=== PATIENT | female | born 1995 | race Caucasian/White ===

== ENCOUNTER 2024-11-08 02:42 | Emergency (ER) | payer OTHER, SELFPAY ==
[2024-11-08 02:44] VITALS: BP 120/80
--- NOTE | 2024-11-08 03:02 | ED.GENMED ---
History of Present Illness
General
Chief Complaint: Back Pain
Source: patient
Exam Limitations: none
Time Seen by Provider: 11/08/24 02:56
History of Present Illness
History of Present Illness:
See MDM
Past History
Past History
ED Past Medical History: None
ED Past Surgical History: None
Social History
Tobacco: Non-smoker
Alcohol: None
Phy Exam
Physical Exam
Physical Exam:
See MDM
Course
Orders/Labs/Results
Orders:
Orders
11/08/24 03:01
Acetaminophen [Tylenol] 650 mg PO NOW STA
Lidocaine [Lidocaine 4% Patch] 1 patch TOPICAL ONCE ONE
Apply Lidocaine patch(s) to:: left lower back
Prednisone [Deltasone] 40 mg PO NOW STA
Vital Signs
Initial and Last Documented VS:
Initial Vital Signs
Temp Pulse Resp BP Pulse Ox
97.4 F 58 18 120/80 100
11/08/24 02:44 11/08/24 02:44 11/08/24 02:44 11/08/24 02:44 11/08/24 02:44
Last Documented Vital Signs
Temp Pulse Resp BP Pulse Ox
97.4 F 55 18 108/80 100
11/08/24 02:44 11/08/24 03:21 11/08/24 03:21 11/08/24 03:19 11/08/24 03:19
MDM/Problems Addressed
Differential Diagnosis Includes:
HPI and MDM Narrative:
28-year-old female at approximately 22 weeks gestation is presenting with left lower back pain going down her left leg. She has had a history of sciatica in the past but has never been this bad. She denies any vaginal bleeding or loss of fluid.
She is not taking any Tylenol or medicine prior to arrival. On exam, she does have straight leg raise consistent with likely sciatica. No midline tenderness or rash noted on her lower back. We discussed low utility of x-ray in addition to the
radiation risk. Patient acknowledges. Will heart sounds. Will place lidocaine patch on her back, start Tylenol and start short course of steroids
Patient denies any red flags such as trouble urinating or loss of bowel or bladder control
Physical exam
General: Well appearing and non-toxic
HEENT: protecting airway
Neck: appears supple
CV: No evidence of cyanosis
Resp: No accessory muscle use
Abd: Non-distended
Back: Mild left sacroiliac point tenderness
Extremities: No deformities. Positive straight leg raise to the left. Distal extremity neurovascular intact
Neuro: alert
Psych: Normal affect
Skin: Intact
Problems Addressed including Acute and Chronic Conditions affecting care:
1. sciatica
Acuity: acute
Prognosis: stable
Details: Given current , this does limit medications. Will start Tylenol and steroids
Updates
I reassessment, patient feeling much better and feels comfortable going home. heart tones checked
Differential Diagnosis (but not limited to): Sciatica, herniated disc
Testing considered: Lumbar x-ray
Drug therapy (if applicable): OTC meds, please see d/c instruction regarding Rx drugs
Amount and/or Complexity of Data Reviewed
Clinical info obtained from: Patient
External data reviewed: N/A
Labs I independently reviewed (but not limited to): N/A
Radiology: N/A
Pulse Ox: not hypoxic
EKG independently reviewed: N/A
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
Critical Care: N/A
Risk of Complication:
Social Determinants of health: Good social support
Discussed with other providers: N/A
Escalation of Care includes Admit/Obs: After being observed in the Emergency Department, pt stable for discharge.
Occasional wrong word or 'sound a like' substitutions may have occurred due to the inherent limitations of voice recognition software. Read the chart carefully and recognize, using context, where substitutions have occurred.
*Critical Care Note
Total Time (30-74mins, 75-104mins- exclusive of procedures): Not Applicable
ED Attending Note
-
Portions of this chart may have been created with voice recognition software.� Occasional wrong word or��sound alike� substitutions may have occurred due to the inherent limitations of voice recognition software.
Discharge Plan
Departure
Patient Disposition: Home (Routine Discharge)
Date of Disposition: 11/08/24
Time of Disposition: :
Patient with high blood pressure during this ER visit?: No
Discharge Problem:
Sciatic leg pain
Instructions: Sciatica (DC)
Prescriptions:
New
prednisone 20 mg tablet
40 mg PO DAILY Qty: 10 0RF
Referrals:
Elizabet Reid DO [Family Provider] -
Activity Restrictions/Additional Instructions:
Please return for any worsening symptoms.
You may return at any time if you have further concerns.
Please follow up with your doctor at the first available appointment, preferably this week.
Thank you for choosing [facility].
Interventions
Interventions:
*Risk Screen - Suicide Last Done: 11/08/24 02:44
*General Assessment Last Done: 11/08/24 03:17
*Neglect/Abuse Screening Last Done: 11/08/24 02:44
*ED- Fall Risk Assessment Last Done: 11/08/24 03:17
*ED COVID-19 Vaccine History Last Done: 11/08/24 03:17
ED-Musculoskeletal Assessment Last Done: 11/08/24 03:17
Discharge Date and Time
Print Language: CAMEROONIAN
[2024-11-08] MEDS: DELTASONE 40 MG PO (03:11)
[2024-11-08] MEDS: LIDOCAINE 4% PATCH 1 PATCH TOPICAL (03:12)
[2024-11-08] MEDS: TYLENOL 650 MG PO (03:12)
[2024-11-08 03:17] VITALS: BMI 22.4
[2024-11-08 03:19] VITALS: BP 108/80
== END 2024-11-08 04:20 | disposition home or self-care (01) ==
LOC: EMR 02:42
PROVIDERS: EMERGENCY PHYSICIAN Student in an Organized Health Care Education/Training Program; FAMILY PHYSICIAN Family Medicine
DX: O99.891 Other specified diseases and conditions complicating pregnancy (principal); M54.42 Lumbago with sciatica, left side; Z3A.22 22 weeks gestation of pregnancy
CPT/HCPCS: 99283

== ENCOUNTER → 2025-01-18 15:43 | Outpatient (REF) | payer OTHER, SELFPAY ==
[2025-01-18 15:04] LABS: % Basophils 0.3 % (0-2); % Eosinophils 0.8 % (0-6); % Immature Granulocytes 0.5 % (0-0.5); % Lymphocytes 22.2 % (20.5-51.1); % Monocytes 6.9 % (1.7-9.3); % Neutrophils 69.3 % (42.2-75.2); Absolute Eosinophils 0.1 10^3/uL (0-0.7); Absolute Lymphocytes 1.4 10^3/uL (1.2-3.4); Absolute Monocytes 0.4 10^3/uL (0.1-0.6); Absolute Neutrophils 4.2 10^3/uL (1.4-6.5); Hematocrit 31.7 % (37.0-47.0); Hemoglobin 9.4 g/dL (12.0-16.0); Mean Corp Hgb Conc. 29.7 g/dL (33.0-37.0); Mean Corpuscular Hgb 22.2 pg (27.0-31.0); Mean Corpuscular Volume 74.9 fL (81.0-99.0); Mean Platelet Volume 9.1 fL (7.4-10.4); Platelet Count 202 10^3/uL (130-400); Red Blood Cell Count 4.23 10^6/uL (4.20-5.40); Red Cell Dist. Width 18.3 % (11.5-14.5); White Blood Cell Count 6.1 10^3/uL (4.8-10.8)
== END ==
LOC: OIDL 15:43
PROVIDERS: ATTENDING PHYSICIAN Internal Medicine Hematology & Oncology
DX: D50.9 Iron deficiency anemia, unspecified (principal)
CPT/HCPCS: 85025

== ENCOUNTER → 2025-01-26 08:48 | Outpatient (REF) | payer OTHER, SELFPAY | LOC: PNTC 08:48 | PROVIDERS: ATTENDING PHYSICIAN Obstetrics & Gynecology | DX: Z34.00 Encounter for supervision of normal first pregnancy, unspecified trimester (principal); O36.5910 Maternal care for other known or suspected poor fetal growth, first trimester, not applicable or unspecified | CPT/HCPCS: 76816; 76820 ==

== ENCOUNTER → 2025-02-17 10:34 | Outpatient (REF) | payer OTHER, SELFPAY | LOC: PNTC 10:34 | PROVIDERS: ATTENDING PHYSICIAN Obstetrics & Gynecology | DX: Z34.90 Encounter for supervision of normal pregnancy, unspecified, unspecified trimester (principal) | CPT/HCPCS: 76816; 76820 ==

== ENCOUNTER 2025-03-12 10:31 | Inpatient (IN) | payer OTHER, SELFPAY ==
[2025-03-12 11:14] VITALS: BP 124/96; BMI 23.6
[2025-03-12 12:04] LABS: Hematocrit 38.1 % (37.0-47.0); Hemoglobin 12.4 g/dL (12.0-16.0); Mean Corp Hgb Conc. 32.5 g/dL (33.0-37.0); Mean Corpuscular Volume 82.3 fL (81.0-99.0); Nucleated Red Blood Cells % 0 %; Platelet Count 149 10^3/uL (130-400); Red Cell Dist. Width 19.9 % (11.5-14.5)
[2025-03-12 12:34] LABS: Urine Character Clear (Clear)
[2025-03-12] MEDS: PENICILLIN 110 UNITS IV (12:42)
[2025-03-12] MEDS: LR 1000 IV ×2 (12:42→19:43)
[2025-03-12 12:46] LABS: ALT (SGPT) 13 U/L (0-35); AST (SGOT) 21 U/L (14-36); Albumin 3.1 g/dl (3.5-5.0); Alkaline Phosphatase 94 U/L (38-126); Blood Urea Nitrogen 6 mg/dl (7-17); Calcium 8.5 mg/dl (8.4-10.2); Carbon Dioxide 25 mmol/L (22-30); Chloride 106 mmol/L (98-107); Estimated Creatinine Clearance 109 ml/min; Glucose 75 mg/dl (70-99); Potassium 4.0 mmol/L (3.5-5.1); Sodium 135 mmol/L (135-145); Total Protein 5.4 g/dl (6.3-8.2); Uric Acid 5.5 mg/dl (2.5-6.2); eGFR > 60.00
[2025-03-12 12:55] LABS: Urine Red Blood Cell 0-2 /HPF (0-2); Urine Squamous Cell >30 /LPF (Few)
[2025-03-12] MEDS: PITOCIN 30 UNITS/NSS 500 ML IV (14:11)
[2025-03-12] MEDS: PENICILLIN 55 UNITS IV ×2 (17:08→19:53)
[2025-03-12] MEDS: SUBLIMAZE 100 MCG EPIDURAL (20:20)
[2025-03-12] MEDS: FENTANYL/BUPIVACAINE 100 EPIDURAL (20:21)
[2025-03-12] MEDS: XYLOCAINE-MPF 1% VIAL 30 ML INFIL (21:38)
[2025-03-13 05:51] LABS: Hematocrit 42.6 % (37.0-47.0); Hemoglobin 13.7 g/dL (12.0-16.0)
[2025-03-13] MEDS: MOTRIN 600 MG PO ×2 (06:25→20:47)
[2025-03-13] MEDS: COLACE PO (19:26)
[2025-03-13] MEDS: COLACE 100 MG PO (20:47)
[2025-03-13] MEDS: PRENATAL PLUS 1 TABLET PO (20:47)
[2025-03-14] MEDS: COLACE 100 MG PO (08:01)
[2025-03-14] MEDS: MOTRIN 600 MG PO (08:01)
[2025-03-14] MEDS: M-M-R II 0.5 ML SC (08:03)
[2025-03-16 11:06] LABS: Syphilis/T. pallidum Ab Reflex Negative (Negative)
== END 2025-03-14 11:59 | disposition home or self-care (01) | DRG 807 ==
LOC: LDRP 10:31
PROVIDERS: Obstetrics & Gynecology; ADMITTING PHYSICIAN Student in an Organized Health Care Education/Training Program; FAMILY PHYSICIAN Family Medicine
PROC: 0UQMXZZ Repair Vulva, External Approach (ICD-10-PCS; 2025-03-12)
PROC: 10E0XZZ Delivery of Products of Conception, External Approach (ICD-10-PCS; 2025-03-12)
PROC: 3E0234Z Introduction of Serum, Toxoid and Vaccine into Muscle, Percutaneous Approach (ICD-10-PCS; 2025-03-14)
DX: O99.824 Streptococcus B carrier state complicating childbirth (principal); Z37.0 Single live birth; Z3A.40 40 weeks gestation of pregnancy; O14.04 Mild to moderate pre-eclampsia, complicating childbirth; O70.0 First degree perineal laceration during delivery; Z23 Encounter for immunization; O69.81X0 Labor and delivery complicated by cord around neck, without compression, not applicable or unspecified
CPT/HCPCS: 80053; 81003; 81015; 82570; 84156; 84550; 85014; 85018; 85025; 86780; 86850; 86900; 86901; 90707